=== PATIENT | female | born 1995 | race Caucasian/White ===

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

== ENCOUNTER 2017-02-07 10:47 | Emergency (ER) | payer SELFPAY ==
[2017-02-07 11:02] VITALS: BP 117/77
--- NOTE | 2017-02-07 11:47 | UC ---
Cardiac HPI - HPI Summary HPI Summary: 21 year old female with worsening Right ear pain for one week, CP started 0015, CP worsens with deep inspiration; c/o chills, pt exposed to pneumonia in client at the [employer] and with cough. Father had 7 GA's and had one before she was born. chest pain with deep inhalations and with pushing on chest . Right ear sensitivity, no ear discharge. No chest pressure or difficulty breathing. [ End ] - History of Current Complaint Chief Complaint: UCEar Stated Complaint: CHEST PAIN AND RIGHT EAR PAIN Time Seen by Provider: 02/07/17 11:28 Hx Obtained From: Patient Hx Last Menstrual Period: 12/24/16 Onset/Duration: Gradual Onset Timing: Constant Initial Severity: Moderate Current Severity: Moderate - Allergy/Home Medications Allergies/Adverse Reactions: Allergies Allergy/AdvReac Type Severity Reaction Status Date / Time Acetaminophen [From Tylenol] Allergy See Comment Verified 02/07/17 11:03 Ibuprofen Allergy Vomiting Verified 02/07/17 11:03 Home Medications: Home Medications Multivitamins/Minerals TAB* [Thera M Plus TAB*] 1 tab PO DAILY 02/07/17 [ History Confirmed 02/07/17] PMH/Surg Hx/FS Hx/Imm Hx Previously Healthy: Yes - Surgical History Surgical History: None - Family History Known Family History: Positive: Other - congenital hip disorder in Mom and sister Negative: Blood Disorder - Social History Occupation: Employed Full-time Lives: With Family Alcohol Use: None Substance Use Type: None Smoking Status (MU): Never Smoked Tobacco Household Exposure Type: Cigarettes - Immunization History Most Recent Influenza Vaccination: 2013 Most Recent Pneumonia Vaccination: never Vaccination Up to Date: Yes Review of Systems ENT: Ear Ache, Sinus Congestion Respiratory: Cough Cardiovascular: Chest Pain Is Patient Immunocompromised?: No All Other Systems Reviewed And Are Negative: Yes Physical Exam Triage Information Reviewed: Yes Appearance: Well-Appearing, No Pain Distress, Well-Nourished Vital Signs: Initial Vital Signs Temp 98.6 F 02/07/17 10:54 Pulse 98 02/07/17 10:54 Resp 18 02/07/17 10:54 BP 117/77 02/07/17 10:54 Pulse Ox 98 02/07/17 10:54 Vital Signs Reviewed: Yes Eye Exam: Normal ENT Exam: Normal ENT: Positive: TM bulging - right, TM dull - right Dental Exam: Normal Neck exam: Normal Neck: Positive: 1 Respiratory Exam: Normal Respiratory: Positive: Lungs clear, Normal breath sounds, No respiratory distress, No accessory muscle use, Other: - tenderness to palpation mid sternum. Negative: Respiratory distress, Decreased breath sounds, Crackles, Rhonchi, Stridor, Wheezing, Expiration, Inspiration, Plerual rub Cardiovascular Exam: Normal Cardiovascular: Positive: RRR, No Murmur, Pulses Normal Abdominal Exam: Normal Musculoskeletal Exam: Normal Neurological Exam: Normal Psychological Exam: Normal Skin Exam: Normal - Assessment/Plan Course Of Treatment: Discussed Red Flags for CP / GA / PE and she does not have these and likely with pleurisy from recent illness. Treat at this time for Right AOM and with recent illness concerned for developing Pneumonia (also with recent pneumonia exposure) -- if Sx worsen then go to ED / and f/u with PCP - Clinical Impression Provider Diagnoses: Pleurisy , Right ear AOM Discharge - Discharge Plan Condition: Good Disposition: HOME Prescriptions: Amoxicillin PO (*) [Amoxicillin 875 MG (*)] 875 mg PO BID #20 tab Patient Education Materials: Pleurisy (ED), Otitis Media (ED) Forms: *Work Release Referrals: MARIA DEL ROSARIO Spears [Primary Care Provider] - 4 Days
--- NOTE | 2017-02-07 12:18 | RAD ---
INDICATION: Chest pain and shortness of breath COMPARISON: None TECHNIQUE: PA and lateral views of the chest were obtained. FINDINGS: The heart and mediastinum are normal in size and contour. The lungs are grossly clear. There is no evidence of large pleural effusion. Visualized bones are normal for the patient's age. There is no radiographic evidence of free air beneath the diaphragm IMPRESSION: No radiographic evidence of acute cardiopulmonary disease.
== END 2017-02-07 12:38 | disposition home or self-care (01) ==
LOC: UCCORT 10:47
DX: R09.1 Pleurisy (principal); H66.91 Otitis media, unspecified, right ear
CPT/HCPCS: 71020; 93005; 99212; G0463

== ENCOUNTER 2018-05-30 21:56 | Emergency (ER) | payer OTHER ==
[2018-05-30 22:05] VITALS: BP 145/62
--- NOTE | 2018-05-30 22:14 | ED ---
Lower Extremity - HPI Summary HPI Summary: 22 yr old female with the complaint of left patellar pain, 10/29. Onset 730 pm when she fell on ice and landed directly on it. She has pain worse with ROM and bearing weight. She used ICE at home, but not better. - History of Current Complaint Chief Complaint: UCLowerExtremity Stated Complaint: LEFT KNEE INJURY Time Seen by Provider: 05/30/18 21:57 Hx Last Menstrual Period: 05/28/18 Pain Intensity: 7 - Allergies/Home Medications Allergies/Adverse Reactions: Allergies Allergy/AdvReac Type Severity Reaction Status Date / Time acetaminophen [From Tylenol] Allergy See Comment Verified 05/30/18 22:12 Home Medications: Home Medications Norgestimate-Ethinyl Estradiol [Amy 0.25-0.035 mg Tablet] 1 each PO DAILY 05/30 [History Confirmed 05/30/18] PMH/Surg Hx/FS Hx/Imm Hx Endocrine/Hematology History: Denies: Hx Diabetes, Hx Thyroid Disease Cardiovascular History: Denies: Hx Hypercholesterolemia, Hx Hypertension, Hx Peripheral Vascular Disease Respiratory History: Denies: Hx Asthma, Hx Chronic Obstructive Pulmonary Disease (COPD) GI History: Denies: Hx Ulcer Musculoskeletal History: Denies: Hx Arthritis, Hx Osteoporosis Sensory History: Denies: Hx Cataracts, Hx Contacts or Glasses, Hx Glaucoma Opthamlomology History: Denies: Hx Cataracts, Hx Contacts or Glasses, Hx Glaucoma Neurological History: Reports: Hx Seizures - keppra Denies: Hx Developmental Delay, Hx Headaches, Hx Migraine, Hx Nerve Disease Psychiatric History: Reports: Hx Anxiety, Hx Depression, Hx Inpatient Treatment , Hx Community Mental Health Tx Denies: Hx Attention Deficit Hyperactivity Disorder, Hx Eating Disorder, Hx Panic Disorder, Hx Post Traumatic Stress Disorder, Hx Schizophrenia, Hx Bipolar Disorder, Hx Suicide Attempt, Hx of Violent Episodes Against Others, Hx Substance Abuse, Other Psychiatric Issues/Disorders Infectious Disease History: No Infectious Disease History: Denies: Hx Hepatitis, Hx Human Immunodeficiency Virus (HIV), History Other Infectious Disease, Traveled Outside the [place] in Last 30 Days - Family History Known Family History: Positive: Other - congenital hip disorder in Mom and sister Negative: Blood Disorder - Social History Lives: With Family Alcohol Use: None Hx Substance Use: No Substance Use Type: Reports: None Hx Tobacco Use: No Smoking Status (MU): Never Smoked Tobacco Review of Systems Constitutional: Negative Positive: Other - pain left knee cap All Other Systems Reviewed And Are Negative: Yes Physical Exam Triage Information Reviewed: Yes Vital Signs On Initial Exam: Initial Vitals Temp Pulse Resp BP Pulse Ox 97.4 F 95 17 145/62 100 05/30/18 22:02 05/30/18 22:02 05/30/18 22:02 05/30/18 22:02 05/30/18 22:02 Vital Signs Reviewed: Yes Appearance: Positive: Well-Appearing, Well-Nourished Skin: Positive: Warm, Skin Color Reflects Adequate Perfusion Head/Face: Positive: Normal Head/Face Inspection Eyes: Positive: EOMI ENT: Positive: Normal ENT inspection Neck: Positive: Supple Respiratory/Lung Sounds: Positive: Other - normal effort Cardiovascular: Positive: Pulses are Symmetrical in both Upper and Lower Extremities Abdomen Description: Negative: Distended Musculoskeletal: Positive: Other - left knee with mild tender ness over the left patella, no STS, no abrasion, no obvious bruise. She puts weight on leg and walks. No patellar tendon weakness; she holds the left knee fully extended with no difficulty. Neurological: Positive: Sensory/Motor Intact, Alert, Oriented to Person Place, Time, CN Intact II-III Psychiatric: Positive: Normal Diagnostics - Vital Signs Vital Signs Temp Pulse Resp BP Pulse Ox 05/30/18 22:02 97.4 F 95 17 145/62 100 - Laboratory Lab Statement: Any lab studies that have been ordered have been reviewed, and results considered in the medical decision making process. - Radiology left knee Radiology Interpretation Completed By: ED Physician - NAD Lower Extremity Course/Dx - Course Course Of Treatment: 22 yr old with contusion to patella. final read pending. crutch, knee immobilizer, ice, and fu with ortho. - Diagnoses Provider Diagnoses: Contusion of knee, left Discharge - Sign-Out/Discharge Documenting (check all that apply): Patient Departure All imaging exams completed and their final reports reviewed: No - Discharge Plan Condition: Good Disposition: HOME Patient Education Materials: Knee Pain (ED) Referrals: MARIA DEL ROSARIO Salgado [Primary Care Provider] - 3 Days Akhil Jerry MD [Medical Doctor] - 3 Days Additional Instructions: Your knee xray will be officially read tomorrow morning by the radiology technician. Use your knee immobilizer, crutches and ice to the knee. Follow up with orthopedic surgery early next week. - Billing Disposition and Condition Condition: GOOD Disposition: Home
--- NOTE | 2018-05-31 12:52 | UC ---
- Progress Note Progress Note: per php website developer "IMPRESSION: NO EVIDENCE FOR FRACTURE." -c/w providers dx. Course/Dx - Diagnoses Provider Diagnoses: Contusion of knee, left Discharge - Sign-Out/Discharge Documenting (check all that apply): Post-Discharge Follow Up All imaging exams completed and their final reports reviewed: Yes - Discharge Plan Condition: Good Disposition: HOME Patient Education Materials: Knee Pain (ED) Referrals: Akhil Jerry MD [Medical Doctor] - 3 Days MARIA DEL ROSARIO Salgado [Primary Care Provider] - 3 Days Additional Instructions: Your knee xray will be officially read tomorrow morning by the ear specialist. Use your knee immobilizer, crutches and ice to the knee. Follow up with orthopedic surgery early next week. - Billing Disposition and Condition Condition: GOOD Disposition: Home
== END 2018-05-30 22:32 | disposition home or self-care (01) ==
LOC: UCCORT 21:56
DX: S80.02XA Contusion of left knee, initial encounter (principal); Z88.8 Allergy status to other drugs, medicaments and biological substances; W00.0XXA Fall on same level due to ice and snow, initial encounter; Y92.9 Unspecified place or not applicable
CPT/HCPCS: 99213; G0463

== ENCOUNTER 2018-09-11 11:12 | Emergency (ER) | payer OTHER ==
[2018-09-11 12:23] VITALS: BP 119/61
--- NOTE | 2018-09-11 12:40 | UC ---
Skin Complaint HPI - HPI Summary HPI Summary: Pt presents with c/o of pain swelling at insect bite to left hand, dorsal aspect between thumb and second finger. Pt was bite by tick 2 days ago, removed tick and now c/o worsening pain at site, soft, firm, moveable, tender mass, swelling and redness. Pt also c/o mild pruritus at site - History of Current Complaint Chief Complaint: UCSkin Time Seen by Provider: 09/11/18 12:22 Stated Complaint: TICK BITE Hx Obtained From: Patient Hx Last Menstrual Period: irregular menses- 'I don't know' ?: No Onset/Duration: Gradual Onset, Lasting Days, Still Present, Worse Since - onset Skin Exposure Onset/Duration: Days Ago Timing: Constant Onset Severity: Mild Current Severity: Moderate Pain Intensity: 3 Location: Discrete - left hand Character: Swelling, Pruritus, Pain, Redness, Raised Aggravating Factor(s): Touch Alleviating Factor(s): Nothing Associated Signs & Symptoms: Positive: Negative Related History: Insect Bite/Sting - Allergy/Home Medications Allergies/Adverse Reactions: Allergies Allergy/AdvReac Type Severity Reaction Status Date / Time acetaminophen [From Tylenol] Allergy See Comment Verified 09/11/18 12:19 PMH/Surg Hx/FS Hx/Imm Hx Previously Healthy: Yes - Surgical History Surgical History: None - Family History Known Family History: Positive: Other - congenital hip disorder in Mom and sister Negative: Blood Disorder - Social History Occupation: Employed Full-time Lives: With Family Alcohol Use: None Substance Use Type: None Smoking Status (MU): Never Smoked Tobacco Have You Smoked in the Last Year: No Household Exposure Type: Cigarettes - Immunization History Most Recent Influenza Vaccination: 2013 Most Recent Pneumonia Vaccination: never Vaccination Up to Date: Yes Review of Systems All Other Systems Reviewed And Are Negative: Yes Constitutional: Positive: Negative Skin: Positive: Other - erythema, swelling and soft, firm tender mass Eyes: Positive: Negative ENT: Positive: Negative Respiratory: Positive: Negative Cardiovascular: Positive: Negative Gastrointestinal: Positive: Negative Genitourinary: Positive: Negative Motor: Positive: Negative Neurovascular: Positive: Negative Musculoskeletal: Positive: Edema - left hand at bite site, Myalgia - left hand Neurological: Positive: Negative Psychological: Positive: Negative Is Patient Immunocompromised?: No Physical Exam Triage Information Reviewed: Yes Appearance: Well-Appearing Vital Signs: Initial Vital Signs Temp 97.5 F 09/11/18 12:19 Pulse 101 09/11/18 12:19 Resp 16 09/11/18 12:19 BP 119/61 09/11/18 12:19 Pulse Ox 99 09/11/18 12:19 Vital Signs Reviewed: Yes Eye Exam: Normal ENT: Positive: Hearing grossly normal Dental Exam: Normal Neck exam: Normal Respiratory Exam: Normal Respiratory: Positive: No respiratory distress Musculoskeletal: Positive: Edema @ - mild swelling, left hand between thumb and second finger. Neurological Exam: Normal Psychological Exam: Normal Skin Exam: Other - mild swelling, soft, firm moveable, tender mass, mild erythema at left hand at base of left thumb Course/Dx - Differential Diagnoses - Skin Complaint Differential Diagnoses: Allergic Reaction, Cellulitis, Local Allergic Reaction - Diagnoses Provider Diagnosis: Insect bite, Cellulitis of left hand Discharge - Sign-Out/Discharge Documenting (check all that apply): Patient Departure All imaging exams completed and their final reports reviewed: No Studies - Discharge Plan Condition: Stable Disposition: HOME Prescriptions: Cetirizine* [ZyrTEC 10 MG TAB*] 10 mg PO DAILY #10 tab DOXYcycline CAP(*) [DOXYcycline 100MG CAP(*)] 100 mg PO Q12H #20 cap predniSONE TAB* [Deltasone 20 MG TAB*] 20 mg PO DAILY #4 tab Patient Education Materials: Cellulitis (ED), Insect Bite or Sting (ED) Forms: *Work Release Referrals: MARIA DEL ROSARIO Salgado [Primary Care Provider] - If Needed - Billing Disposition and Condition Condition: STABLE Disposition: Home
== END 2018-09-11 13:03 | disposition home or self-care (01) ==
LOC: UCCORT 11:12
DX: S60.562A Insect bite (nonvenomous) of left hand, initial encounter (principal); L03.114 Cellulitis of left upper limb; W57.XXXA Bitten or stung by nonvenomous insect and other nonvenomous arthropods, initial encounter
CPT/HCPCS: 99212; G0463

== ENCOUNTER 2019-03-02 07:41 | Emergency (ER) | payer OTHER ==
[2019-03-02 07:59] VITALS: BP 126/69
--- NOTE | 2019-03-02 08:50 | UC ---
Throat Pain/Nasal Gurvinder HPI - HPI Summary HPI Summary: 23-year-old female comes in with a chief complaint of upper respiratory tract infection symptoms for one day. Her son has the same symptoms and is not on antibiotics at this time as it's considered a viral infection. She does have some runny nose some sore throat some cough. Patient's also had about 3 days of dysuria. She took a home urine test and that came back positive. She reports these are symptoms that she gets with UTIs in early . She gave to her son about a year ago and since has had a miscarriage and her periods have been very irregular since she can't say when her last period was. No abdominal pain. No complaint of any flank pain. - History of Current Complaint Chief Complaint: UCGeneralIllness Stated Complaint: ST Time Seen by Provider: 03/02/19 08:36 Hx Last Menstrual Period: irregular menses- 'I don't know' Pain Intensity: 3 - Allergies/Home Medications Allergies/Adverse Reactions: Allergies Allergy/AdvReac Type Severity Reaction Status Date / Time acetaminophen [From Tylenol] Allergy See Comment Verified 03/02/19 07:58 Home Medications: Home Medications D-Methorphan/PE/Acetaminophen [Daytime Cold Multi-Symp Gelcap] 1 each PO ONCE [History Confirmed 03/02/19] Dm/Acetaminophen/Doxylamine [Nighttime Cold-Flu Rlf Sftgl] 1 each PO ONCE [History Confirmed 03/02/19] PMH/Surg Hx/FS Hx/Imm Hx Previously Healthy: Yes Psychological History: Depression - Surgical History Surgical History: Yes Surgery Procedure, Year, and Place: D&C - Family History Known Family History: Positive: Other - congenital hip disorder in Mom and sister Negative: Blood Disorder - Social History Alcohol Use: None Substance Use Type: None Smoking Status (MU): Never Smoked Tobacco Have You Smoked in the Last Year: No Household Exposure Type: Cigarettes - Immunization History Most Recent Influenza Vaccination: 2013 Most Recent Pneumonia Vaccination: never Vaccination Up to Date: Yes Review of Systems All Other Systems Reviewed And Are Negative: Yes Constitutional: Positive: Other - SEE HPI Skin: Positive: Negative Eyes: Positive: Negative ENT: Positive: Sore Throat, Nasal Discharge, Sinus Congestion Respiratory: Positive: Cough Genitourinary: Positive: Dysuria, Frequency, Urgency Motor: Positive: Negative Neurovascular: Positive: Negative Musculoskeletal: Positive: Negative Neurological: Positive: Negative Psychological: Positive: Negative Is Patient Immunocompromised?: No Physical Exam Triage Information Reviewed: Yes Appearance: No Pain Distress, Well-Nourished, Ill-Appearing - MILD Vital Signs: Initial Vital Signs Temp 98.2 F 03/02/19 07:55 Pulse 108 03/02/19 07:55 Resp 16 03/02/19 07:55 BP 126/69 03/02/19 07:55 Pulse Ox 100 03/02/19 07:55 Vital Signs Reviewed: Yes Eye Exam: Normal Eyes: Positive: Conjunctiva Clear ENT: Positive: Pharyngeal erythema, Nasal congestion, Nasal drainage, TMs normal Neck: Positive: Supple Respiratory: Positive: Lungs clear, Normal breath sounds, No respiratory distress Cardiovascular: Positive: RRR Abdomen Description: Positive: Nontender. Negative: CVA Tenderness (R), CVA Tenderness (L) Musculoskeletal: Positive: Strength Intact, ROM Intact Neurological: Positive: Alert, Muscle Tone Normal Psychological: Positive: Age Appropriate Behavior Skin Exam: Normal Throat Pain/Nasal Course/Dx - Course Course Of Treatment: Will treat the UTI and early with amoxicillin. Her upper respiratory tract infection is all certainly a viral. Patient is not sure how far along her is. I recommended that she start multiple vitamins. She is an appointment with her SCRIPT SUPERVISOR on March 11, 2019. Follow-up sooner if worse or any questions or concerns. - Differential Dx/Diagnosis Provider Diagnosis: Upper respiratory infection, UTI (urinary tract infection) in in first trimester, Discharge ED - Sign-Out/Discharge Documenting (check all that apply): Patient Departure All imaging exams completed and their final reports reviewed: No Studies - Discharge Plan Condition: Stable Disposition: HOME Prescriptions: Amoxicillin PO (*) [Amoxicillin 500 MG CAP*] 500 mg PO TID #21 cap Patient Education Materials: (ED), Upper Respiratory Infection (ED), Urinary Tract Infection in (ED) Forms: *Work Release Referrals: Mikaela Dejesus MD [Primary Care Provider] - Additional Instructions: FOLLOW UP WITH YOUR OBGYN ON 03/11/19 SCHEDULED. Start taking [id number] women's multiple vitamins. GET REEVALUATED IF NOT IMPROVING OR WORSE OR ANY QUESTIONS OR CONCERNS. - Billing Disposition and Condition Condition: STABLE Disposition: Home
== END 2019-03-02 08:58 | disposition home or self-care (01) ==
LOC: UCCORT 07:41
DX: O23.41 Unspecified infection of urinary tract in pregnancy, first trimester (principal); J06.9 Acute upper respiratory infection, unspecified; Z3A.00 Weeks of gestation of pregnancy not specified; Z88.6 Allergy status to analgesic agent
CPT/HCPCS: 81003; 84702; 87086; 87651; 99212; G0463

== ENCOUNTER 2019-04-11 18:24 | Emergency (ER) | payer OTHER ==
[2019-04-11 18:32] VITALS: BP 112/63
--- NOTE | 2019-04-11 18:38 | UC ---
Lower Extremity/Ankle HPI - HPI Summary HPI Summary: 23-year-old female who was 4-year-old son took a shopping cart and ran into the back of her left heel over the Achilles tendon. The patient does ambulate however states that her foot is numb. - History of Current Complaint Chief Complaint: UCLowerExtremity Stated Complaint: LEFT FOOT INJURY Time Seen by Provider: 04/11/19 18:26 Hx Obtained From: Patient Hx Last Menstrual Period: irregular menses- 'I don't know' ?: No Onset/Duration: Sudden Onset Severity Initially: Moderate Severity Currently: Mild Pain Intensity: 0 Aggravating Factor(s): Ambulation Alleviating Factor(s): Rest Able to Bear Weight: Yes - Allergies/Home Medications Allergies/Adverse Reactions: Allergies Allergy/AdvReac Type Severity Reaction Status Date / Time acetaminophen [From Tylenol] Allergy See Comment Verified 04/11/19 18:28 Home Medications: Home Medications Vitamin TAB* 1 tab DAILY 04/11/19 [History Confirmed 04/11/19] Sertraline* [Zoloft*] 50 mg DAILY 04/11/19 [History Confirmed 04/11/19] PMH/Surg Hx/FS Hx/Imm Hx Previously Healthy: Yes - Surgical History Surgical History: Yes Surgery Procedure, Year, and Place: D&C - Family History Known Family History: Positive: Other - congenital hip disorder in Mom and sister Negative: Blood Disorder - Social History Lives: With Family Alcohol Use: None Substance Use Type: None Smoking Status (MU): Never Smoked Tobacco Have You Smoked in the Last Year: No Household Exposure Type: Cigarettes - Immunization History Most Recent Influenza Vaccination: 2013 Most Recent Pneumonia Vaccination: never Vaccination Up to Date: Yes Review of Systems All Other Systems Reviewed And Are Negative: Yes Skin: Positive: Bruising - Mild bruise over the left Achilles tendon. Is Patient Immunocompromised?: No Physical Exam Triage Information Reviewed: Yes Appearance: Well-Appearing, No Pain Distress, Well-Nourished Vital Signs: Initial Vital Signs Temp 97.7 F 04/11/19 18:29 Pulse 95 04/11/19 18:29 Resp 18 04/11/19 18:29 BP 112/63 04/11/19 18:29 Pulse Ox 100 04/11/19 18:29 Vital Signs Reviewed: Yes Musculoskeletal: Positive: Strength Intact, ROM Intact, Other: - Good peripheral pulses and capillary refill. Patient states she is unable to feel anything on her foot however she does ambulate without difficulty. The Achilles is intact however has a mild bruise approximately 1 inch from the insertion point of her ankle. Ankle itself is nontender with no bruising, erythema, deformity or swelling. Neurological: Positive: Alert, Muscle Tone Normal Psychological Exam: Normal Skin: Positive: Other - Mild bruise approximate 1 inch from the insertion point of the left Achilles tendon. I had the patient on the exam table on her stomach in order to test the Achilles tendon. On palpation it is intact as well. Lower Extremity Course/Dx - Course Course Of Treatment: Patient is comfortable here. At this point time there is no ankle or foot involvement. An Mihai bandage was applied over the area for compression and comfort. - Differential Dx/Diagnosis Provider Diagnosis: Contusion of ankle, left Discharge ED - Sign-Out/Discharge Documenting (check all that apply): Patient Departure All imaging exams completed and their final reports reviewed: No Studies - Discharge Plan Condition: Good Disposition: HOME Patient Education Materials: Contusion in Adults (ED) Referrals: Mikaela Dejesus MD [Primary Care Provider] - Ezra Georges MD [Medical Doctor] - Additional Instructions: May ambulate as pain permits. Elevate as much as possible, use the Mihai bandage for comfort, take Tylenol every 4 hours and Motrin every 8 hours for pain, apply ice intermittently over the next day or 2. Follow-up with the orthopedist if worsening symptoms or if no improvement in 3 or 4 days. - Billing Disposition and Condition Condition: GOOD Disposition: Home
== END 2019-04-11 18:49 | disposition home or self-care (01) ==
LOC: UCCORT 18:24
DX: S90.02XA Contusion of left ankle, initial encounter (principal); W51.XXXA Accidental striking against or bumped into by another person, initial encounter; Y92.9 Unspecified place or not applicable; Z88.6 Allergy status to analgesic agent
CPT/HCPCS: 99212; G0463

== ENCOUNTER 2019-06-26 12:24 | Emergency (ER) | payer OTHER ==
[2019-06-26 15:26] VITALS: BP 123/61
--- NOTE | 2019-06-26 16:27 | UC ---
Lower Extremity/Ankle HPI - HPI Summary HPI Summary: 24-year-old female who is 23 weeks presents with complaints of left medial ankle pain. States earlier today she slipped while descending some stairs, her left leg behind her and she landed on top of her ankle with her full weight. Reports pain worsens with weightbearing and movement. Has not taken any [id number] analgesics however has been icing and using an Mihai wrap with some improvement in symptoms. She has been able to walk and bear weight on the ankle since the injury although with some discomfort. States she called [facility] and has an appointment scheduled for for evaluation. Reports normal movement. Denies any other injuries, abdominal pain, cramping, or vaginal discharge. - History of Current Complaint Chief Complaint: UCLowerExtremity Stated Complaint: LEFT ANKLE INJURY Time Seen by Provider: 06/26/19 15:19 Hx Obtained From: Patient Hx Last Menstrual Period: irregular menses- 'I don't know' Pain Intensity: 7 - Allergies/Home Medications Allergies/Adverse Reactions: Allergies Allergy/AdvReac Type Severity Reaction Status Date / Time acetaminophen [From Tylenol] Allergy See Comment Verified 06/26/19 15:26 Home Medications: Home Medications Vitamin TAB* 1 tab DAILY 04/11/19 [History Confirmed 06/26/19] Lurasidone(*) [Latuda] 40 mg PO BEDTIME 06/26/19 [History Confirmed 06/26/19] PMH/Surg Hx/FS Hx/Imm Hx Previously Healthy: Yes Psychological History: Anxiety, Depression - Surgical History Surgical History: Yes Surgery Procedure, Year, and Place: D&C - Family History Known Family History: Positive: Other - congenital hip disorder in Mom and sister Negative: Blood Disorder - Social History Occupation: Employed Full-time Lives: With Family Alcohol Use: None Substance Use Type: None Smoking Status (MU): Never Smoked Tobacco Have You Smoked in the Last Year: No Household Exposure Type: Cigarettes - Immunization History Most Recent Influenza Vaccination: 2013 Most Recent Pneumonia Vaccination: never Vaccination Up to Date: Yes Review of Systems All Other Systems Reviewed And Are Negative: Yes Constitutional: Positive: Negative Skin: Negative: Bruising Respiratory: Positive: Negative Cardiovascular: Positive: Negative Gastrointestinal: Positive: Negative Genitourinary: Positive: Negative Motor: Negative: Weakness Neurovascular: Negative: Decreased Sensation Musculoskeletal: Positive: Other: - See HPI Neurological/Mental Status: Positive: Negative Is Patient Immunocompromised?: No Physical Exam - Summary Physical Exam Summary: GENERAL APPEARANCE: Well developed, well nourished, alert and cooperative, and appears to be in no acute distress. HEAD: Atraumatic. Normocephalic. NECK: Neck supple, non-tender. CARDIAC: Normal S1 and S2. No S3, S4 or murmurs. Rhythm is regular. There is no peripheral edema, cyanosis or pallor. Extremities are warm and well perfused. Capillary refill is less than 2 seconds. Peripheral pulses intact. LUNGS: Clear to auscultation without rales, rhonchi, wheezing or diminished breath sounds. ABDOMEN: Positive bowel sounds. Soft, nondistended, nontender. No guarding or rebound. No masses or hepatosplenomegally. Fundus consistent with gestational age. MUSKULOSKELETAL: Normal muscular development. Limping gait. BACK: No spinal deformity or tenderness, decreased range of motion or muscular spasm. EXTREMITIES: Tenderness over the medial malleolus of the left ankle without gross deformity, ecchymosis, or edema. ROM limited by pain. Circulation and sensation intact. SKIN: Skin normal color, texture and turgor with no lesions or eruptions. Triage Information Reviewed: Yes Vital Signs: Initial Vital Signs Temp 98.7 F 06/26/19 15:24 Pulse 102 06/26/19 15:24 Resp 18 06/26/19 15:24 BP 123/61 06/26/19 15:24 Pulse Ox 100 06/26/19 15:24 Vital Signs Reviewed: Yes Diagnostics - Radiology No standard instances Radiology Interpretation Completed By: Radiologist Summary of Radiographic Findings: Order Information: ANKLE LEFT 3+VWS. HISTORY : medial ankle pain s/p fall . COMPARISONS: None relevant available at the time of dictation. VIEWS: 3, Frontal, lateral, and oblique views of the right ankle. FINDINGS: BONE DENSITY: Normal. BONES: There is no displaced fracture. There are bones of the medial malleolus. JOINTS: There is no arthropathy. ALIGNMENT: There is no dislocation. SOFT TISSUES: Unremarkable. OTHER FINDINGS: None. IMPRESSION: NO ACUTE OSSEOUS INJURY. Lower Extremity Course/Dx - Course Course Of Treatment: 24-year-old female who is 23 weeks presents with complaints of left medial ankle pain. States earlier today she slipped while descending some stairs, her left leg behind her and she landed on top of her ankle with her full weight. Reports pain worsens with weightbearing and movement. Has not taken any [id number]-hevfsxe analgesics however has been icing and using an Mihai wrap with some improvement in symptoms. She has been able to walk and bear weight on the ankle since the injury although with some discomfort. States she called [facility] and has an appointment scheduled for for evaluation. Reports normal movement. Denies any other injuries, abdominal pain, cramping, or vaginal discharge. Afebrile. Vital signs stable. Patient had tenderness over the medial malleolus of the left ankle without gross deformity, ecchymosis, or edema. ROM limited by pain. Circulation and sensation intact. Remainder of exam was unremarkable. X-ray showed no acute osseous injury. Results reviewed with the patient. Recommending conservative treatment for a left ankle sprain versus contusion including [id number] acetaminophen for pain and RICE. She was placed in an Mihai wrap and cam boot by the RN and provided crutches with instructions to continue with limited weightbearing as tolerated. She is to keep her follow-up appointment with orthopedic surgery. Anticipatory guidance warning symptoms were reviewed with the patient. Verbalizes understanding and agrees with plan of care. - Differential Dx/Diagnosis Provider Diagnosis: Left ankle sprain Discharge ED - Sign-Out/Discharge Documenting (check all that apply): Patient Departure All imaging exams completed and their final reports reviewed: Yes - Discharge Plan Condition: Stable Disposition: HOME Patient Education Materials: Ankle Sprain (ED), Crutch Instructions (ED), Walking Boot (ED) Referrals: Mikaela Dejesus MD [Primary Care Provider] - Additional Instructions: The x-ray performed in the clinic today showed no evidence of a fracture. I suspect that you have an ankle sprain or bad contusion (bruise). Rest the ankle as much as possible. You may do limited weight bearing as tolerated. Use the crutches provided to you. Keep the ankle wrapped with the MIHAI wrap. Wear the CAM boot provided to you in the clinic for support. You may remove to sleep and shower but should wear at all other times. Apply ice to the affected area for 15-20 minutes at least 4 times a day to help with the pain and swelling. Elevate the leg to help reduce swelling. Take acetaminophen (Tylenol) according to directions as needed for pain. Follow up with orthopedic surgery as scheduled on . Seek immediate medical attention if you have severe pain not managed with pain medication, you are unable to walk or bear any weight, develop numbness or tingling in the foot or toes, or have any worsening of symptoms. - Billing Disposition and Condition Condition: STABLE Disposition: Home
== END 2019-06-26 17:10 | disposition home or self-care (01) ==
LOC: UCCORT 12:24
DX: O9A.212 Injury, poisoning and certain other consequences of external causes complicating pregnancy, second trimester (principal); S93.492A Sprain of other ligament of left ankle, initial encounter; Z88.6 Allergy status to analgesic agent; Z3A.23 23 weeks gestation of pregnancy; W18.40XA Slipping, tripping and stumbling without falling, unspecified, initial encounter; Y92.9 Unspecified place or not applicable
CPT/HCPCS: 99213; G0463